=== PATIENT | female | born 1985 | race Caucasian/White ===

== ENCOUNTER → 2022-08-24 | Outpatient (CLI) | payer BC ==
[2022-08-24 16:12] LABS: Basophils # (A) 0.04 X 10*3/uL (0.00-0.10); Basophils % (A) 0.5 %; Eosinophils # (A) 0.04 X 10*3/uL (0.04-0.35); Eosinophils % (A) 0.5 %; HCT 41.8 % (37.2-46.3); HGB 13.7 d/dL (12.0-15.0); Lymphocytes # (A) 1.87 X 10*3/uL (0.90-5.00); Lymphocytes % (A) 25.4 %; MCH 29.5 pg (27.0-32.0); MCHC 32.8 d/dL (32.0-37.0); MCV 90.1 FL (80.0-97.0); Mean Platelet Volume 10.1 FL (9.5-12.2); Monocytes # (A) 0.46 X 10*3/uL (0.20-1.00); Monocytes % (A) 6.2 %; NRBC Per 100 WBC 0 X 10*3/uL (0.00-0.01); Neutrophils # (A) 4.92 X 10*3/uL (1.80-7.70); Neutrophils % (A) 66.9 %; Platelet Count 263 X 10*3/uL (140-440); RBC 4.64 X 10*6/uL (4.10-5.20); RDW 13.2 % (11.5-14.5); WBC 7.37 X 10*3/uL (4.50-10.00)
== END | disposition home or self-care (01) ==
LOC: MERGE 09:56 → LABPAT 09:56
PROVIDERS: ATTEND Obstetrics & Gynecology Obstetrics
DX: Z01.812 Encounter for preprocedural laboratory examination (principal); O02.1 Missed abortion; Z3A.00 Weeks of gestation of pregnancy not specified
CPT/HCPCS: 85025; 86850; 86900; 86901

== ENCOUNTER 2022-08-26 12:46 | Day surgery (SDC) | payer BC ==
[2022-08-24 14:51] VITALS: BMI 33.8
[~2022-08-26 12:46] MED LIST: DEXAMETHASONE SOD PHOSPHATE 4 MG/ML 1 ML VIAL IV ONE; LACTATED RINGERS 1,000 ML IV SCH; LIDOCAINE 1% (10MG/ML) FOR IV START INTRADERMA PRN; MIDAZOLAM 2 MG/2 ML VIAL IV PRN; ONDANSETRON 4 MG/2 ML VIAL IVP ONE; Pre Op ABX Message 1 EACH MISC MISCELLANE ONE
[2022-08-26] MEDS ORDERED: SCOPOLAMINE 1 MG/72 HR PATCH TRANSDERM ONE (13:14)
[2022-08-26] MEDS ORDERED: fentaNYL (PF) 50 MCG/ML 2 ML AMP ONE (13:32)
[2022-08-26] MEDS ORDERED: MIDAZOLAM 2 MG/2 ML VIAL ONE (13:32)
[2022-08-26] MEDS ORDERED: KETOROLAC 15 MG/ML 1 ML VIAL ONE (13:32)
[2022-08-26] MEDS ORDERED: PROPOFOL 10 MG/ML 20 ML VIAL IV ONE (13:32)
--- NOTE | 2022-08-26 14:13 | P.OP ---
Date of Procedure: 08/26/22 Preoperative Diagnosis: Missed AB Postoperative Diagnosis: Same Procedure(s) Performed: Suction dilation and curettage Anesthesia: MAC Surgeon: Zahira Schmidt Estimated Blood Loss (ml): 5 Urine output (ml): 50 Pathology: other (Uterine contents) Condition: stable Disposition: PACU Indications for Procedure: Missed AB Operative Findings: Moderate amount of products of conception Description of Procedure: Patient was taken back to the operating suite where general anesthesia was attained without difficulty by the anesthesia department. She was prepped and draped in normal sterile fashion in the dorsal lithotomy position. Red rubber catheter was used to drain the bladder clear yellow urine. A weighted speculum was placed in the posterior vaginal vault, the anterior lip of the cervix was visualized and grasped with a single-tooth tenaculum. Endocervical canal was then serially dilated. An 8 curved suction curette was then placed through the cervix and toward the endometrial cavity suction was then activated and a moderate amount of proximal of conception were cleared from the uterus after multiple passes. A gentle curettage revealed uterus to be empty of products, the suction curet was placed one additional pass with no further products of conception noted. The uterus was firm, bleeding was minimal. The single-tooth tenaculum was taken off of the anterior lip of the cervix. Hemostasis was appreciated. All instruments were then removed for the patients vaginal vault. All counts were correct 2. Patient tolerated procedure well was taken to the recovery room awake in stable condition.
[2022-08-26 14:14] VITALS: TEMP 97.6
[2022-08-26 14:34] VITALS: RESP 16
[2022-08-26] MEDS: HYDROmorphone 0.5 MG/0.5 ML SYRINGE IVP PRN ×2 (14:36→14:42)
[2022-08-26] MEDS ORDERED: droPERidol 5 MG/2 ML VIAL IVP ONE (15:02)
[2022-08-26 15:35] VITALS: BP 114/70; PULSE 80
== END 2022-08-26 15:43 | disposition home or self-care (01) ==
LOC: OR 12:46
PROVIDERS: ATTEND Obstetrics & Gynecology Obstetrics
DX: O02.1 Missed abortion (principal); F41.9 Anxiety disorder, unspecified; R01.1 Cardiac murmur, unspecified; E03.9 Hypothyroidism, unspecified; Z80.8 Family history of malignant neoplasm of other organs or systems; Z82.1 Family history of blindness and visual loss; Z83.49 Family history of other endocrine, nutritional and metabolic diseases; Z79.82 Long term (current) use of aspirin; Z79.890 Hormone replacement therapy; Z79.899 Other long term (current) drug therapy; Z88.2 Allergy status to sulfonamides
CPT/HCPCS: 86900; 86901; 88305; 86850; 59820; J2250; J1100; J2405; J3010; J1885; J2704; J1170; J1790

== ENCOUNTER → 2022-12-08 | Outpatient (CLI) | payer BC ==
[2022-12-08 16:35] LABS: T4, Free (Free Thyroxine) 1.39 ng/dL (0.80-1.80)
== END | disposition home or self-care (01) ==
LOC: LABWHC1 07:30
PROVIDERS: ATTEND Obstetrics & Gynecology Obstetrics
DX: N96 Recurrent pregnancy loss (principal); E03.9 Hypothyroidism, unspecified
CPT/HCPCS: 36415; 84144; 84439; 84443; 84702

== ENCOUNTER → 2022-12-10 | Outpatient (CLI) | payer BC | END | disposition home or self-care (01) | LOC: LABWHC1 08:04 | PROVIDERS: ATTEND Obstetrics & Gynecology Obstetrics | DX: N96 Recurrent pregnancy loss (principal) | CPT/HCPCS: 36415; 84702 ==

== ENCOUNTER 2023-07-28 19:43 | Outpatient (CLI) | payer BC ==
[2023-07-28 20:56] VITALS: BP 122/71; PULSE 91; RESP 16; TEMP 97.2
--- NOTE | 2023-07-30 16:02 | P.MSEPDOC ---
Presenting Problems - Arrival Data Date of Arrival on Unit: 07/28/23 Time of Arrival on Unit: 19:43 Mode of Transport: Ambulatory - Complaint OB-Reason for Admission/Chief Complaint: Decreased Movement Medical History - Information : 5 Para: 2 Term: 2 : 0 Abortions: Spontaneous or Elective: 2 Number of Living Children: 2 - Gestational Age Gestational Age by MEENAKSHI (wks/days): 37 Weeks and 0 Days Review of Systems - Review of Systems Constitutional: No problems Breast: No problems ENT: No problems Cardiovascular: No problems Respiratory: No problems Gastrointestinal: No problems Genitourinary: No problems Musculoskeletal: No problems Neurological: No problems Skin: No problems Vital Signs - Temperature Temperature: 97.2 F Temperature Source: Temporal Artery Scan - Pulse Right Brachial Pulse Rate: 91 Pulse Assessment Method: Automatic Cuff - Respirations Respiratory Rate: 16 Oxygen Delivery Method: Room Air O2 Sat by Pulse Oximetry: 95 - Blood Pressure Right Arm Blood Pressure: 122/71 Blood Pressure Mean: 88 Blood Pressure Source: Automatic Cuff Medical Screen Scoring - Cervical Exam Dilation (cm): 1.5 Effacement (%): 50 Station: -2 Membranes: Intact - Uterine Contractions Frequency From (mins): 4 Frequency To (mins): 5 Duration From (seconds): 40 Duration To (seconds): 55 Intensity: Mild Resting: Soft to palpation - Assessment - Baby A Baseline FHR: 125 Heart Rate - NICHD Category: Category I (Normal) NST: Reactive Physician Notification - Physician Notified Physician Notified Date: 07/28/23 Physician Notified Time: 20:30 Physician: Gertrudis Devries - Notification Comment Comment: Dr. Devries called with report on patient that presents for decreased movement. Reactive NST, vitals reviewed. Contractions tracing every 4 minutes per toco, patient denies contractions, RN to perform cervical exam and discharge if patient has mad no change from cervical exam in office. Maternal Triage Index - Urgent/Priority 2 Urgent Priority 2: Yes Provider Notified: Gertrudis Devries Provider Notified Time: 20:30 Criteria Met for Priority 2: decreased movement Disposition - Disposition OB Disposition: Discharge to home Discharge Date: 07/28/23 Discharge Time: 20:34 I agree with the RN Medical Screening Exam: Yes Physician's MSE Comment: I have neither seen nor examined the patient Case reviewed; plan agreed upon as documented in EMR&OBIX.: Yes Diagnosis: MATERNAL CARE FOR PROBLEM, UNSP, THIRD * DO NOT USE *
== END 2023-07-28 20:36 ==
LOC: FBPOP 19:43
PROVIDERS: ATTEND Obstetrics & Gynecology
DX: O36.8131 Decreased fetal movements, third trimester, fetus 1 (principal); O24.415 Gestational diabetes mellitus in pregnancy, controlled by oral hypoglycemic drugs; Z3A.37 37 weeks gestation of pregnancy; Z88.2 Allergy status to sulfonamides; Z88.1 Allergy status to other antibiotic agents
CPT/HCPCS: 59025; 99213

== ENCOUNTER 2023-08-11 06:00 | Inpatient (IN) | payer BC ==
[2023-08-11] MEDS ORDERED: miSOPROStoL 200 MCG TAB RECTAL PRN (06:30)
[2023-08-11] MEDS ORDERED: miSOPROStoL 200 MCG TAB PO PRN (06:30)
[2023-08-11] MEDS ORDERED: CARBOPROST TROMETHAMINE 250 MCG/ML 1 ML AMP IM PRN (06:30)
[2023-08-11] MEDS ORDERED: TRANEXAMIC 1,000 MG/100ML-NACL 1,000 MG in EMPTY BAG 1 BAG IV PRN (06:30)
[2023-08-11] MEDS ORDERED: OXYTOCIN 10 UNIT/ML 1 ML VIAL IM PRN (06:30)
[2023-08-11] MEDS ORDERED: TERBUTALINE 1 MG/ML VIAL SQ PRN (06:30)
[2023-08-11] MEDS ORDERED: METHYLERGONOVINE 0.2 MG/ML 1 ML AMP IM PRN (06:30)
[2023-08-11 06:32] LABS: Glucose,Whole Blood 88 mg/dL (70-110)
[2023-08-11 06:42] LABS: Basophils % (A) 1 %; Eosinophils % (A) 2 %; HCT 38.7 % (34.0-46.0); HGB 12.4 gm/dL (11.4-16.0); Lymphocytes % (A) 25 %; MCH 28.2 pg (25.0-35.0); MCHC 32.1 g/dL (31.0-37.0); MCV 87.9 fL (80.0-100.0); Mean Platelet Volume 7.8; Monocytes % (A) 6 %; Neutrophils # (A) 6.3 k/uL (1.3-7.7); Neutrophils % (A) 64 %; Platelet Count 281 k/uL (150-450); RDW 15.1 % (11.5-15.5); WBC 9.9 k/uL (3.8-10.6)
[2023-08-11 06:43] LABS: Basophils # (A) 0.1 k/uL (0-0.2); Eosinophils # (A) 0.2 k/uL (0-0.7); Lymphocytes # (A) 2.5 k/uL (1.0-4.8); Monocytes # (A) 0.6 k/uL (0-1.0)
[2023-08-11] MEDS: LACTATED RINGERS 1,000 ML IV SCH (06:47)
[2023-08-11] MEDS: OXYTOCIN 30 UNITS/500 ML NS 30 UNIT in SALINE 1 500ML.BAG IV SCH (06:50)
[2023-08-11] MEDS: LIDOCAINE 0.5% (PF) 5 MG/ML (50 ML SDV) SQ PRN (15:30)
--- NOTE | 2023-08-11 15:38 | P.HPOB ---
History of Present Illness H&P Date: 08/11/23 Chief Complaint: IUP @ 39 weeks This is 38 yo at 39 weeks that presents for induction of labor. Patient has been receiving routine care that was complicated by diagnosis of gestational diabetes, she was well-controlled with diet alone. Patient notes good movement denies vaginal bleeding or loss of fluid. On blood work revealed a blood type of O+, rubella status immune, hepatitis B surface engine negative, HIV negative, RPR nonreactive, grew beta strep culture was negative. Review of Systems Constitutional: Denies chills, Denies fatigue, Denies fever Ears, nose, mouth and throat: Denies headache Cardiovascular: Reports leg edema Respiratory: Denies dyspnea Gastrointestinal: Denies constipation, Denies diarrhea, Denies nausea, Denies vomiting Genitourinary: Reports Past Medical History Past Medical History: Hyperlipidemia, Thyroid Disorder Additional Past Medical History / Comment(s): Heart murmur. Hx Gestational Diabetes. Hx migraines. History of Any Multi-Drug Resistant Organisms: None Reported Additional Past Surgical History / Comment(s): [place] teeth extracted. D&C 2022 Past Anesthesia/Blood Transfusion Reactions: No Reported Reaction, Motion Sickness Past Psychological History: Anxiety Smoking Status: Never smoker Past Alcohol Use History: None Reported Past Drug Use History: None Reported - Past Family History Mother Family Medical History: No Reported History Medications and Allergies Home Medications Medication Instructions Recorded Confirmed Type Aspirin [Adult Low Dose Aspirin EC] 81 mg PO DAILY 08/24/22 07/28/23 History Cetirizine HCl [Zyrtec] 10 mg PO DAILY PRN 08/24/22 08/26/22 History Fluticasone Nasal [place] [Flonase 1 spray EA NOSTRIL DAILY PRN 08/24/22 08/26/22 History Nasal [place]] Levothyroxine Sodium 25 mcg PO QAM 08/24/22 07/28/23 History Vit No.179/Iron/Folic 1 each PO DAILY 08/24/22 07/28/23 History [ Tablet] metFORMIN HCL 1,500 mg PO HS 07/28/23 07/28/23 History Allergies Allergy/AdvReac Type Severity Reaction Status Date / Time sulfamethoxazole Allergy Anaphylaxis Verified 07/28/23 19:51 [From Bactrim] trimethoprim [From Bactrim] Allergy Anaphylaxis Verified 07/28/23 19:51 Exam Osteopathic Statement: *. No significant issues noted on an osteopathic structural exam other than those noted in the History and Physical/Consult. Vital Signs Temp Pulse Resp BP Pulse Ox 08/11/23 06:27 98.7 F 121 H 16 142/78 98 Intake and Output 08/10/23 08/11/23 08/11/23 22:59 06:59 14:59 Other: Weight 84.368 kg Targeted physical exam is performed this date General is well-nourished well- developed female in no acute distress, breathing is nonlabored, heart has a regular rate and rhythm, abdomen is gravid, on cervical exam she is 4/50/- 2 station vertex presentation amniotomy was performed and clear fluid was obtained. heart tones are noted to be category 1 and she is jair every 2 to 3 minutes. Results Result Diagrams: 08/11/23 06:28 Assessment and Plan (1) Term Current Visit: Yes Status: Acute Code(s): Z34.90 - ENCNTR FOR SUPRVSN OF NORMAL , UNSP, UNSP TRIMESTER SNOMED Code(s): 31354813 (2) AMA (advanced maternal age) multigravida 35+ Current Visit: Yes Status: Acute Code(s): O09.529 - SUPERVISION OF ELDERLY MULTIGRAVIDA, UNSPECIFIED TRIMESTER SNOMED Code(s): 547573432 Plan: 38-year-old -0-3-2 at 39 weeks of that presents for induction of labor. Patient is admitted and tested induction of labor has begun per hospital protocol. Amniotomy is performed. Options for analgesia are discussed and she states she will consider. Anticipate spontaneous vaginal delivery later today.
[2023-08-11] MEDS ORDERED: ZOLPIDEM 5 MG TAB PO PRN (15:40)
[2023-08-11] MEDS ORDERED: diphenhydrAMINE 50 MG/ML 1 ML VIAL IVP PRN ×2 (15:40)
[2023-08-11] MEDS ORDERED: diphenhydrAMINE 50 MG CAP PO PRN (15:40)
[2023-08-11] MEDS ORDERED: HYDROCORTISONE 2.5% RECTAL CREAM 30 GM TUBE RECTAL PRN (15:40)
[2023-08-11] MEDS ORDERED: LANOLIN CREAM 1 GM TUBE TOPICAL PRN (15:40)
[2023-08-11] MEDS: BENZOCAINE/MENTHOL SPRAY 1 GM/SPRAY AEROSOL TOPICAL PRN (15:40)
[2023-08-11] MEDS ORDERED: diphenhydrAMINE 25 MG CAP PO PRN (15:40)
[2023-08-11] MEDS ORDERED: SIMETHICONE 80 MG CHEWABLE PO PRN (15:40)
--- NOTE | 2023-08-11 15:40 | P.PROBDLV ---
Vaginal Delivery Note - . Vaginal Delivery Note: 38-year-old -0-3-2 at 39-0/7 weeks that presented to labor and delivery for scheduled induction of labor secondary to gestational diabetes A1. Patient was admitted and Pitocin induction of labor was begun. Patient underwent amniotomy and clear fluid was obtained. Patient progressed through labor eventually becoming uncomfortable and requesting epidural. Epidural was placed without difficulty by the anesthesia department. Patient made good progress toward c omplete dilation. Once patient was noted to be completely dilated she began pushing and had a normal spontaneous vaginal delivery of a viable female at 1526, weight of of 7 pounds 14.8 ounces. A loose nuchal cord was noted at delivery and delivered through on the perineum. After 2-minute delay the umbilical cord was doubly clamped and cut placenta was delivered spontaneously intact with a three-vessel cord being noted. On inspection the patient's vaginal vault a first-degree vaginal laceration was appreciated. This was injected with lidocaine and repaired in the usual fashion with 3-0 Rapide. Uterus is noted to be firm below the umbilicus. Estimated blood loss 100 cc. Patient and tolerated delivery well and are resting comfortably.
[2023-08-11] MEDS: IBUPROFEN 600 MG TAB PO SCH (17:41)
[2023-08-11] MEDS: ROPIVACAINE 225 MG, fentaNYL (PF). 450 MCG in SODIUM CHLORIDE 0.9% 171 ML EPIDURAL ONE (20:45)
[2023-08-11] MEDS: SENNOSIDES-DOCUSATE SODIUM 1 EACH TAB PO SCH (20:56)
[2023-08-12] MEDS: ACETAMINOPHEN TAB 325 MG TAB PO PRN (03:03)
[2023-08-12 09:06] VITALS: RESP 16
--- NOTE | 2023-08-12 11:40 | P.DS ---
Providers Date of admission: 08/11/23 06:00 Expected date of discharge: 08/12/23 Attending physician: Zahira Schmidt Primary care physician: Caryn Fong - Discharge Diagnosis(es) (1) Status post normal vaginal delivery Current Visit: Yes Status: Acute Hospital Course: The patient is a 38-year-old 6 para 2-0-3-2 admitted at 39 weeks for elective induction of labor. Her has been complicated by the diagnosis of gestational diabetes with good sugar control with diet alone as well as metformin. On labor delivery, all signs are reassuring with a category 1 heart rate tracing. Group B strep status is negative. She had Pitocin augmentation started and underwent artificial rupture of membranes. She had an epidural catheter placed for analgesia during her labor course and ultimately progressed to complete and then pushed to a normal spontaneous vaginal delivery of a viable 7 pound 15 ounce baby girl with Apgars of 9 at 1 minute and 9 at 5 minutes. Her course was unremarkable with vital signs remaining stable and her temperature was afebrile throughout. She was deemed stable for discharge on day 1 and was discharged home to follow-up in the office in 6 weeks time routinely. Discharge instructions included calling for any significantly increased bleeding or foul-smelling lochia, significantly increased fever or abdominal pain, perineal complaints, breast complaints, or anything else that concerned her. She was additionally instructed to have nothing in the vagina for at least 6 weeks time to include intercourse. She understood her instructions and agrees to follow-up as noted above. Discharge medications included continued vitamins as she has opted to breast- feed. She was otherwise to use [id number] analgesic pain medications as needed. Maternal blood type is O+ and rubella status is immune. Procedures: #1. Pitocin induction #2. Artificial rupture of membranes #3. Epidural analgesia #4. Normal spontaneous vaginal delivery #5. Repair of perineal laceration Patient Condition at Discharge: Stable Plan - Discharge Summary New Discharge Prescriptions: No Action Fluticasone Nasal [place] [Flonase Nasal [place]] 1 spray EA NOSTRIL DAILY PRN PRN Reason: Allergic Reaction Vit No.179/Iron/Folic [ Tablet] 1 each PO DAILY Cetirizine HCl [Zyrtec] 10 mg PO DAILY PRN PRN Reason: Allergic Reaction Levothyroxine Sodium 25 mcg PO QAM Aspirin [Adult Low Dose Aspirin EC] 81 mg PO DAILY metFORMIN HCL 1,500 mg PO HS Discharge Medication List Aspirin [Adult Low Dose Aspirin EC] 81 mg PO DAILY 08/24/22 [History] Cetirizine HCl [Zyrtec] 10 mg PO DAILY PRN 08/24/22 [History] Fluticasone Nasal [place] [Flonase Nasal [place]] 1 spray EA NOSTRIL DAILY PRN 08/24/22 [History] Levothyroxine Sodium 25 mcg PO QAM 08/24/22 [History] Vit No.179/Iron/Folic [ Tablet] 1 each PO DAILY 08/24/22 [History] metFORMIN HCL 1,500 mg PO HS 07/28/23 [History] Follow up Appointment(s)/Referral(s): Zahira Schmidt DO [Doctor of Osteopathic Medicine] - 6 Weeks Discharge Disposition: HOME SELF-CARE
[2023-08-12 17:03] VITALS: BP 127/70; PULSE 98; TEMP 97.9
== END 2023-08-12 16:57 | disposition home or self-care (01) | DRG 807 ==
LOC: 4FBP 06:00
PROVIDERS: ADMIT Obstetrics & Gynecology Obstetrics; ATTEND Obstetrics & Gynecology Obstetrics
PROC: 10E0XZZ Delivery of Products of Conception, External Approach (ICD-10-PCS; principal; 2023-08-11)
PROC: 10907ZC Drainage of Amniotic Fluid, Therapeutic from Products of Conception, Via Natural or Artificial Opening (ICD-10-PCS; principal; 2023-08-11)
PROC: 0HQ9XZZ Repair Perineum Skin, External Approach (ICD-10-PCS; principal; 2023-08-11)
PROC: 3E033VJ Introduction of Other Hormone into Peripheral Vein, Percutaneous Approach (ICD-10-PCS; principal; 2023-08-11)
DX: O24.425 Gestational diabetes mellitus in childbirth, controlled by oral hypoglycemic drugs (principal); Z37.0 Single live birth; Z3A.39 39 weeks gestation of pregnancy; E78.5 Hyperlipidemia, unspecified; O69.81X0 Labor and delivery complicated by cord around neck, without compression, not applicable or unspecified; O70.0 First degree perineal laceration during delivery; O99.284 Endocrine, nutritional and metabolic diseases complicating childbirth; Z79.82 Long term (current) use of aspirin; Z79.84 Long term (current) use of oral hypoglycemic drugs; Z79.890 Hormone replacement therapy; Z79.899 Other long term (current) drug therapy; Z28.310 Unvaccinated for COVID-19; Z88.2 Allergy status to sulfonamides; E07.9 Disorder of thyroid, unspecified
CPT/HCPCS: 85025; 86850; 86900; 86901